=== PATIENT | female | born 1945 | race Caucasian/White ===

== ENCOUNTER 2016-08-05 19:52 | Emergency (ER) | payer MEDICARE, OTHER ==
[~2016-08-05 19:52] MED LIST: ASAB PO; LIPITOR40 PO; [UNRECOGNIZED DRUG - REMARK]
== END 2016-08-05 21:00 | disposition home or self-care (01) ==
LOC: ER 19:52
PROC: 2W3TXYZ Immobilization of Left Foot using Other Device (ICD-10-PCS; principal; 2016-08-05)
DX: S92.355A Nondisplaced fracture of fifth metatarsal bone, left foot, initial encounter for closed fracture (principal); E78.5 Hyperlipidemia, unspecified; F17.200 Nicotine dependence, unspecified, uncomplicated; Z88.8 Allergy status to other drugs, medicaments and biological substances; Z79.82 Long term (current) use of aspirin; Z79.899 Other long term (current) drug therapy; W18.40XA Slipping, tripping and stumbling without falling, unspecified, initial encounter
CPT/HCPCS: 73630-LT; 99283